=== PATIENT | male | born 1960 | race Caucasian/White ===

== ENCOUNTER → 2019-03-08 12:27 | Outpatient (CLI) | payer OTHER, SELFPAY ==
[2019-03-08 12:12] VITALS: BMI 29.5
--- NOTE | 2019-03-08 12:28 | RAD_ITS ---
STUDY: X-RAY - LUMBAR SPINE REASON FOR EXAM: Male, 58 years old. Back pain following a lifting injury. TECHNIQUE: 4 view(s) of the lumbar spine were obtained. COMPARISON: None FINDINGS: Normal lumbar lordosis. There is no substantial scoliosis. There is a normal alignment of the vertebrae. There is multilevel endplate spondylosis of the lumbar vertebrae. Normal disc space heights. There is atherosclerotic calcification of the abdominal aorta without a demonstrated aneurysm. RAD/L/S Spine Min 4 Views IMPRESSION: Degenerative changes of the spine, as detailed above. Electronically Signed: Laith Mtz, at 13:47 EST , Service support ,
== END ==
PROVIDERS: Family Provider Family Medicine; PCP Family Medicine; Referring Provider Physician Assistant; Visit Provider Physician Assistant
DX: M54.5 Low back pain (principal)
CPT/HCPCS: 72110

== ENCOUNTER 2019-04-18 16:30 | Outpatient (RCR) | payer OTHER, SELFPAY ==
[2019-03-08 12:12] VITALS: BMI 29.5
[2019-03-15 07:11] VITALS: BMI 29.5
--- NOTE | 2019-03-16 14:06 | HP.PTEVAL ---
Patient's Visit Information Jaeysh MATA is a 58 year old M referred to Physical Therapy by ACACIA Donovan with a diagnosis of LUMBAR RADICULOPATHY/LOW BACK STRAIN. Date of Evaluation: 03/16/19 Physical Therapist: Karli Wray PT, Cert MDT - Visit Plan Frequency: 2-3x /Week Duration: 4-6 Weeks Plan: NO LIFTING > 10 LBS, NO CLIMBING, NO REACHING AND NO BENDING AND TWISTING FOR WORK RESTRICTIONS. POSTURE CORRECTION/STRENGTHENING, INSTRUCTION IN APPROPRIATE BODY MECHANICS AND ACTIVITY MODIFICATIONS. DLS STARTING WITH A NEUTRAL SPINE PROGRESSING ROM TOLERATED. ROBERTO LE ROM, STRETCHING AND STRENGTHENING. HEP INSTRUCTION. 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 Disability: NO. Present symptoms: LOW BACK PAIN. RECENT HX OF PAIN INTO ROBERTO THIGHS AND UP BACK NEAR ONSET. NO NUMBNESS OR TINGLING. Present since: FEB 14 2019. Pain Scale: WORST 3/10, LEAST 1/10. Currently: 05/11. Commenced as a result of: LIFTING A MOTOR UP INTO AN AIR HANDLER - MY BACK DID NOT FEEL NORMAL AFTER THAT. IT WOULD COME AND GO AND I WOULD HAVE TROUBLE BENDING OVER AND PICKING THINGS UP OFF THE FLOOR'. CONTINUED TO WORK UNTIL 03/07/19 WHEN PICKED UP A WOOD FILE CABINET AND PUT IT ON A INGA AND FELT SOMETHING REALLY HURT IN LOW BACK. PROCEEDED TO WORK AND IT GOT WORSE. WENT TO THE [facility] THE NEXT DAY. WAS PRESCRIBED PREDNISONE AND STILL ON IT - ONE MORE DAY LEFT. TAKING MUSCLE RELAXER TOO. Worse: BENDING TO PICK SOMETHING UP FROM THE FLOOR, PUSHING THE FLUSH HANDLE ON THE TOLIET, SITTING ON THE TOLIET, GETTING SOMETHING OUT OF THE WASHER, TURNING WRONG IN BED AT NIGHT, PUTTING SOCKS ON IS TERRIBLE, PUTTING SHOES ON, FEEDING THE DOG. Better: HEATING PAD, RECLINER, GO TO BED. Disturbed sleep: YES. Previous history/Previous treatment: ABOUT 10 YEARS AGO SPRAINED BACK SLED RIDING - RESOLVED AND NO PROBLEM SINCE. NO BACK SURGERY. NO CASSANDRA'S. NO CHIROPRACTOR. Coughing/sneezing/straining: NEGATIVE. Gait: NORMAL FOR PATIENT. HEEL SPURS AND H/O KNEE SURGERY FOR TORN MENISCUS. PATIENT REPORTS BOTH KNEES FEEL THE SAME NOW AND HE DOESN'T EVEN REMEMBER WHICH KNEE HE HAD SURGERY ON. Difficulty initiating urinatin: NO. Accidents: 10 YEARS AGO - SLEDDING. Unexplained weight loss: NO. Imaging: There is multilevel endplate spondylosis of the lumbar vertebrae. PMH: UNREMARKABLE. OTHER: PATIENT REPORTS HE WAS NOT ABLE TO GO BACK TO WORK LAST TUESDAY AND TUESDAY. HASN'T BEEN ABLE TO COME BACK TO WORK UNTIL YESTERDAY. WORKED 4 HOURS YESTERDAY AND TODAY. I HAVE DEFINATELY GOT BETTER THE LAST TWO DAYS HERE. - Objective Sitting/Standing Posture: POOR. VERY SLOUCHED. Lordosis: REDUCED. Lateral shift: NO. Relevant shift: N/A. Active Correction of posture: NE. Other Observations: INDEP GAIT INTO PT WITH GOOD CADANCE AND NO ASSISTIVE DEVICES. Motor deficit: ROBERTO LE'S 5/5 WITH MMT'ING. Sensory deficit: NO. ROM deficit: TIGHT ROBERTO HS'S AND GASTROC SOLEUS COMPLEX'S. Reflexes: 2/3 ROBERTO LE'S. Dural Signs: POSITIVE RIGHT LE. NEGATIVE LLE. Lumbar mvmt loss: flex - MOD - INCREASES RIGHT LOW BACK PAIN. ext - CAROL. R SG - MOD. L SG - MOD. Core strength: POOR. Palpation: NO ACUTE LUMBAR TENDERNESS BUT INCREASED MUSCLE TONE OF ROBERTO PARASPINALS. OTHER: PATIENT AND THIS PT COMPLETED BACK OSWESTRY TO THE BEST OF OUR ABILITY TODAY. - Goals Goal 1:: DECREASE C/O LOW BACK PAIN Goal Time Frame: 4-6 Weeks Goal 2:: IMPROVE LIFTING, WALKING, STANDING, SOCIAL LIFE, TRAVEL, HOMEMAKING AND WORK FUNCTION. Goal Time Frame: 4-6 Weeks Goal 3:: INSTRUCT IN PROPHYLAXIS Goal Time Frame: 4-6 Weeks - Rehabilitation Potential Rehabilitation Potential: Fair - Anticipated Interventions Patient/Client Instruction: Educate patient on: Condition, Plan of Care, Risk Factors, Benefits of Fitness Program For the Purpose of:: To improve self management Therapeutic Exercise to Include: Strength training, Body mechanics, Postural training, Flexibilty training, Dynamic Lumbar Stabilization For the Purpose of:: To decrease pain, To increase ROM, To improve muscle performance and motor function, To increase tolerance to activity/condition/position, To improve ability of physical actions for home/community/work/leisure Thank you for the opportunity to evaluate your patient. For Medicare and Medicare HMO plans, please review the plan of care and approve it. It will need to be FAXED BACK to us at [phone] for Medicare purposes. For Medicare only, by signing this I certify the plan of care. Please let me know if there are questions or concerns regarding this plan of care. Physician Signature: Date:
--- NOTE | 2019-04-18 16:42 | HP.PTDCSUM ---
HP - PT D/C Summary It has been my pleasure to treat Jayesh MATA under orders from ACACIA Donovan, for the diagnosis of LUMBAR RADICULOPATHY/LOW BACK STRAIN for a total of 12 visit(s). Discharge Date: Please see the following information for a summary of their discharge status. - Subjective Subjective: NO COMPLAINTS. PATIENT REPORTS HE IS BACK TO WORKING [employer] AFTER LASTING FULL DUTY WITHOUT DIFFICULTY. OCCASSIONALLY GETS A LITTLE BIT OF BACK PAIN. - Overall Improvement % Improvement: 99 - Objective Objective/Function: ALL GOALS MET. PATIENT NOW HAS LUMBAR ROM WFL ALL PLANES, IMPROVED CORE STRENGTH AND NEGATIVE ROBERTO LE DURAL SIGNS. - Goals Goal 1:: DECREASE C/O LOW BACK PAIN Goal Progress: Goal Met Goal 2:: IMPROVE LIFTING, WALKING, STANDING, SOCIAL LIFE, TRAVEL, HOMEMAKING AND WORK FUNCTION. Goal Progress: Goal Met Goal 3:: INSTRUCT IN PROPHYLAXIS Goal Progress: Goal Met - Plan Plan: D/C TO INDEP EX. PATIENT IS AGREEABLE. - D/C Information If there are questions or concerns regarding this patient's physical therapy, please feel free to call me at [phone]. Thank you for the referral of this patient. Sincerely, Karli Wray, PT, Cert MDT
== END 2019-04-18 19:00 | disposition home or self-care (01) ==
LOC: PT 16:30
PROVIDERS: Family Provider Family Medicine; PCP Family Medicine; Referring Provider Physician Assistant; Visit Provider Physician Assistant
DX: S39.012D Strain of muscle, fascia and tendon of lower back, subsequent encounter (principal); M54.16 Radiculopathy, lumbar region
CPT/HCPCS: 97110; 97161; 97530

== ENCOUNTER 2023-08-08 05:23 | Day surgery (SDC) | payer OTHER, SELFPAY ==
--- NOTE | 2023-08-08 | COLBX_PTH ---
PATIENT: DERREK MATA LOC: EN U#:[id number] AGE/SX: 62/M ROOM: RE08/08/[address]: Dr. Elvis Carrillo DO : 1960 BED: DIS: 08/08/2023 SPEC #: [id number] RECD: 08/08/23 13:01 STATUS: CIRILO REHAN #: [id number] AUTUMN: 08/08/23 00:[address]: Elvis Carrillo DEPT: SURGICAL PATHOLOGY RECD BY: Rasheed Fagan ENTERED: 08/08/23 13:01 SP TYPE: COLON BX OTHR DR: Dr. Jean Pierre Romero MD Tissues: Ascending colon Procedures: Surgery Specimen Level IV HEADER OPERATION: Colonoscopy- open access, biopsy PRE-OP DIAGNOSIS: Encounter for screening of neoplasm of colon TISSUE SUBMITTED: Ascending colon polyp biopsy MICROSCOPIC DIAGNOSIS Ascending colon polyp, biopsy: Tubular adenoma. LIBERTY/mr 08/09/23 MICROSCOPIC DESCRIPTION Slides are reviewed. GROSS DESCRIPTION Received in fixative is one container labeled with the patient's name and designated Ascending colon polyp biopsy. The specimen consists of one irregular fragment of light weller soft tissue that measures 0.8 x 0.2 x 0.1 cm. The specimen is totally submitted in one cassette. AM/mr 08/08/23 TC: CPT:54876
[2023-08-08 06:04] VITALS: BP 118/88; PULSE 83; RESP 16; TEMP 36.7; O2SAT 94; BMI 29.9
[2023-08-08] MEDS: Lactated Ringers 1,000 ML 15 ML IV (06:04)
--- NOTE | 2023-08-08 06:43 | PCM.HP.STD ---
HPI - General General Date of Admission: 08/08/23 Date of Service: 08/08/23 Chief Complaint: Screening colonoscopy HPI Narrative DERREK MATA, is a 62 M who presents today for screening colonoscopy. He has no particular past medical history. He had a colonoscopy 10 years ago that was normal. He does not have abdominal pain that have any cramping sign of any chest pain shortness of breath overall he is in very good health. [facility] Medical History COVID-19 History of hemorrhoids Laceration of left index finger Home Medications multivitamin 1 tab PO DAILY 08/08/23 [History Last Taken Unknown] Allergy/AdvReac Type Severity Reaction Status Date / Time soap Allergy Rash Verified 08/08/23 06:00 Family History (Updated 06/29/23 @ 11:45 by Shikha Kyle) Father COPD (chronic obstructive pulmonary disease) Surgical History History of knee surgery Hx of colonoscopy Hx of tooth extraction Social History (Updated 06/29/23 @ 11:46 by Shikha Kyle) household members: spouse current occupational status: employed current occupation: [employer] Smoking Status: Former smoker alcohol intake: current Alcohol type: beer substance use type: does not use ROS Review of Systems ROS Unobtainable: other Constitutional Constitutional: Denies fatigue, fever(s), poor appetite, weight gain or weight loss ENT HEENT: Denies mouth lesions Cardiovascular Cardiovascular: Denies abdominal bloating, abdominal edema or abdominal pain Respiratory/Chest Respiratory/Chest: Denies change in mental status, change in phlegm color, chest congestion or chest tightness Gastrointestinal Gastrointestinal: Denies belching, bloating, change in bowel habits, change in stool character, chewing difficulty, coffee ground emesis, constipation, cramping, diarrhea, dyspepsia, dysphagia, early satiety, excessive flatus, fecal incontinence, heartburn, hematemesis, hematochezia, hemorrhoids, loose stools, melena, nausea, odynophagia, rectal bleeding, tenesmus, vomiting or weight changes Genitourinary Genitourinary: Denies abdominal discomfort, burning urination or itching Musculoskeletal Musculoskeletal: Reports as per HPI; Denies muscle weakness or myalgias Integumentary Integumentary: Denies jaundice Neurologic Neurologic: Denies lack of coordination or weakness Psychiatric Psychiatric: Denies confusion, depression, memory loss, mood swings, paranoia or suicidal ideation Endocrine Endocrinology: Denies systems reviewed and no addt'l complaints, except as documented Hematologic/Lymphatic Hematologic/Lymphatic: Denies anemia, easy bleeding, easy bruising or lymphadenopathy Allergic/Immunologic Allergic/Immunologic: Denies systems reviewed and no addt'l complaints, except as documented Vital Signs Vital Signs Vital Signs: 08/08/23 06:04 08/08/23 06:04 Temperature 98.1 F Temperature Source Temporal Pulse Rate 83 Respiratory Rate 16 Respiratory Pattern Normal Blood Pressure 118/88 H Blood Pressure Mean 98 Blood Pressure Source Monitor Blood Pressure Position Semi-Fowlers Blood Pressure Location Left Arm Pulse Ox 94 Oxygen Delivery Method Room Air Weight Weight: 233 lb 11.04 oz Body Mass Index (BMI) 29.9 Physical Exam Const alert General Appearance: cooperative Orientation / Consciousness: oriented to person HEENT hearing grossly normal bilaterally Head and Scalp: normal to inspection Face and Sinus: face symmetric Nose: external nose normal Mouth: oral and palatal mucosa normal Eyes conjunctivae normal General Eye: normal appearance of both eyes Neck full ROM General: normal visual inspection Lymph Lymphatic: no lymphadenopathy noted Chest inspection of chest normal and palpation of chest normal Chest: symmetrical chest wall rise Resp normal respiratory effort Effort and Inspection: able to speak in complete sentences Cardio regular rate GI non-distended Percussion: normal to percussion Rectal Exam: deferred Neuro Speech: speech normal Gait (Neuro): normal gait Assessment & Plan Assessment/Plan (1) Encounter for screening for malignant neoplasm of colon: PLAN: He was explained alternatives including and not withstanding bleeding, infection, sepsis, perforation, need for emergent surgery and . He will have an ASA of 3.
[2023-08-08 07:07] VITALS: BP 109/73; BP 118/88; PULSE 89; RESP 16; TEMP 36.4; O2SAT 96
[2023-08-08 07:10] VITALS: BP 110/80; BP 118/88; PULSE 86; RESP 16; O2SAT 92
--- NOTE | 2023-08-08 07:10 | OP.COLON_ITS ---
Patient Name: Dwaine Lara Procedure Date: 08/08/2023 6:23 AM Date of : 1960 Age: 62 Procedure: Colonoscopy Indications: Screening for colorectal malignant neoplasm Providers: Elvis Carrillo DO Referring MD: Ariel Romero Medicines: Monitored Anesthesia Care Patient Profile: This is a 62 year old male. Refer to note in patient chart for documentation of history and physical. Last Colonoscopy: more than 10 years ago. Complications: No immediate complications. Procedure: Pre-Anesthesia Assessment: - Prior to the procedure, a History and Physical was performed, and patient medications and allergies were reviewed. The risks and benefits of the procedure and the sedation options and risks were discussed with the patient. All questions were answered and informed consent was obtained. Patient identification and proposed procedure were verified by the physician. Mental Status Examination: alert and oriented. Airway Examination: normal oropharyngeal airway and neck mobility. Respiratory Examination: clear to auscultation. CV Examination: normal. Prophylactic Antibiotics: The patient does not require prophylactic antibiotics. Prior Anticoagulants: The patient has taken no anticoagulant or antiplatelet agents. ASA Grade Assessment: II - A patient with mild systemic disease. After reviewing the risks and benefits, the patient was deemed in satisfactory condition to undergo the procedure. The anesthesia plan was to use monitored anesthesia care (MAC). Immediately prior to administration of medications, the patient was re-assessed for adequacy to receive sedatives. The heart rate, respiratory rate, oxygen saturations, blood pressure, adequacy of pulmonary ventilation, and response to care were monitored throughout the procedure. The physical status of the patient was re-assessed after the procedure. After I obtained informed consent, the scope was passed under direct vision. Throughout the procedure, the patient's blood pressure, pulse, and oxygen saturations were monitored continuously. The colonoscope was introduced through the anus and advanced to the cecum, identified by appendiceal orifice and ileocecal valve. The colonoscopy was performed without difficulty. The patient tolerated the procedure well. The quality of the bowel preparation was adequate. The ileocecal valve, appendiceal orifice, and rectum were photographed. Scope In: 6:48:37 AM Scope Out: 7:00:51 AM Total Procedure Duration Time 0 hours 12 minutes 14 seconds Findings: The perianal and digital rectal examinations were normal. A 5 mm polyp was found in the ascending colon. The polyp was sessile. The polyp was removed with a cold snare. Resection and retrieval were complete. Verification of patient identification for the specimen was done. Estimated blood loss was minimal. The exam was otherwise without abnormality on direct and retroflexion views. Impression: - One 5 mm polyp in the ascending colon, removed with a cold snare. Resected and retrieved. - The examination was otherwise normal on direct and retroflexion views. Recommendation: - Discharge patient to home. - Patient has a contact number available for emergencies. The signs and symptoms of potential delayed complications were discussed with the patient. Return to normal activities tomorrow. Written discharge instructions were provided to the patient. - Resume previous diet. - Continue present medications. - Await pathology results. - Repeat colonoscopy in 5 years for surveillance. Procedure Code(s): --- Professional --- 88771, Colonoscopy, flexible; with removal of tumor(s), polyp(s), or other lesion(s) by snare technique CPT copyright 2021 [employer] [place] [employer]. All rights reserved. The codes documented in this report are preliminary and upon rn faculty review may be revised to meet current compliance requirements. Elvis Carrillo DO 08/08/2023 7:08:55 AM This report has been signed electronically. Number of Addenda: 0 Note Initiated On: 08/08/2023 6:23 AM
--- NOTE | 2023-08-08 07:10 | OP.CCLET_ITS ---
08/08/2023 Ariel Romero [address] [place] [address] Re : Colonoscopy procedure for Dwaine Lara Dear Dr. Romero This procedure was performed on Tuesday, August 08, 2023. My impressions and recommendations are as follows: Impressions : - One 5 mm polyp in the ascending colon, removed with a cold snare. Resected and retrieved. - The examination was otherwise normal on direct and retroflexion views. Recommendations : - Discharge patient to home. - Patient has a contact number available for emergencies. The signs and symptoms of potential delayed complications were discussed with the patient. Return to normal activities tomorrow. Written discharge instructions were provided to the patient. - Resume previous diet. - Continue present medications. - Await pathology results. - Repeat colonoscopy in 5 years for surveillance. My findings are described in the full procedure note, which is enclosed. If I can be of further assistance, please feel free to contact me at . Sincerely, Elvis Carrillo, 08/08/2023 7:08:55 AM This report has been signed electronically.
[2023-08-08 07:15] VITALS: BP 109/77; BP 118/88; PULSE 85; RESP 16; O2SAT 97
[2023-08-08 07:18] VITALS: BP 110/85; BP 118/88; PULSE 83; RESP 16; TEMP 36.9; O2SAT 94
[2023-08-08 07:47] VITALS: BP 118/88
== END 2023-08-08 07:49 | disposition home or self-care (01) ==
LOC: EN 05:25 → AC 05:26
PROVIDERS: PCP Family Medicine; Referring Provider Family Medicine; Visit Provider Internal Medicine Gastroenterology
PROC: 0DJD8ZZ Inspection of Lower Intestinal Tract, Via Natural or Artificial Opening Endoscopic (ICD-10-PCS; CPT 45378; principal; 2023-08-08 06:25)
DX: Z12.11 Encounter for screening for malignant neoplasm of colon (principal); D12.2 Benign neoplasm of ascending colon; Z87.891 Personal history of nicotine dependence
CPT/HCPCS: 45385; 88305; J7120; J2405

== ENCOUNTER → 2025-02-28 | Outpatient (CLI) | payer OTHER, SELFPAY ==
[2025-02-28 11:08] LABS: Anion Gap 12 (5-15); BUN 16 mg/dL (4-19); BUN/Creat Ratio 17.9 RATIO (10-20); Calcium,Total 9.1 mg/dL (7.6-11.0); Carbon Dioxide 20.5 mmol/L (21.0-32.0); Chloride 106 mmol/L (98-108); Cholesterol 175 mg/dL (<=200); Glucose 108 mg/dL (70-99); Low Density Lipoprotein Calc. 125 mg/dL; PSA,Total- Diagnostic 1.33 ng/mL (0.00-4.00); Potassium 4.2 mmol/L (3.3-5.1); Triglycerides 110 mg/dL; Very Low Density Lipoprotein 22 mg/dL (5-40); cholesterol:hdl ratio screen 5.81
== END | disposition home or self-care (01) ==
LOC: MTLAB 07:13
PROVIDERS: PCP Family Medicine; Referring Provider Family Medicine; Visit Provider Family Medicine
DX: E78.5 Hyperlipidemia, unspecified (principal)
CPT/HCPCS: 36415; 80048; 80061; 84153